=== PATIENT | male | born 1945 | race Caucasian/White ===

== ENCOUNTER 2020-09-14 19:02 | Inpatient (IN) | payer MEDICARE ==
[2020-09-14] MEDS ORDERED: Furosemide 100 MG/10 ML VIAL SLOW IVP SCH (20:00)
[2020-09-14 20:55] LABS: INR-International Normal Ratio 1.1; PTT 27.9 sec (22.0-33.0); Prothrombin Time 11.9 sec (9.5-12.1)
[2020-09-14 21:00] LABS: Troponin I 0.032 ng/mL (< 0.028)
[2020-09-14] MEDS: cefTRIAXone\\ROCEPHIN 2 GM in Sodium Chloride 0.9% 100 ML IVPB SCH (21:53)
[2020-09-14] MEDS: Nitroglycerin 2% Ointment 1 INCH/1 GM Packet TOP SCH (21:58)
[2020-09-14] MEDS: Lantus 1000 UNITS/10 ML VIAL SC SCH (22:01)
[2020-09-14] MEDS: Atorvastatin Calcium 40 MG TAB PO SCH (22:02)
[2020-09-14] MEDS: Carbidopa/Levodopa 25-100 mg Tablet PO SCH (22:02)
[2020-09-14] MEDS: Apixaban 5 MG TAB PO SCH (22:02)
[2020-09-14] MEDS: Azithromycin 500 MG in Sodium Chloride 0.9% 250 ML 250 ML IVPB SCH (22:38)
[2020-09-15] MEDS ORDERED: HumaLOG 300 UNITS/3 ML VIAL SC SCH (04:00)
[2020-09-15] MEDS ORDERED: Magnesium 2 GM/50 ML 2 GM in Premix Bag 1 BAG IVPB SCH (04:00)
[2020-09-15] MEDS: Nitroglycerin 2% Ointment 1 INCH/1 GM Packet TOP SCH ×2 (05:24→16:22)
[2020-09-15] MEDS ORDERED: Furosemide 100 MG/10 ML VIAL SLOW IVP SCH ×2 (06:00)
[2020-09-15 06:48] LABS: #Monocytes 0.3 10x3/uL (0.0-1.1); #Neutrophils 5.1 10x3/uL (1.5-8.4); %Basophils 0.2 % (0.0-2.0); %Lymphocytes 10.2 % (18.0-47.0); %Monocytes 4.3 % (0.0-10.0); Hemoglobin 10.1 g/dL (13.5-17.5); Mean Corpuscular HGB CONC 32.6 g/dL (32.0-36.0); Mean Corpuscular Hemoglobin 31.2 pg (27.0-33.0); Mean Corpuscular Volume 95.7 fl (81.2-95.1); Mean Platelet Volume 9.5 fl (7.4-10.4); Platelet Count 419 10x3/uL (150-450); RBC Distribution Width 13.6 % (11.5-14.5); Red Blood Cell (RBC) Count 3.24 10x6/uL (4.32-5.72); White Blood Cell (WBC) Count 6.1 10x3/uL (3.5-10.5)
[2020-09-15 07:01] LABS: Anion Gap 17 mmol/L (10-20); BUN (Urea Nitrogen) 26 mg/dL (8.4-25.7); Calc. Creatinine Clearance 51 mL/min (70-130); Calcium 9.3 mg/dL (7.8-10.44); Carbon Dioxide 28 mmol/L (23-31); Cardiac Risk 3.5 (Less than 4.5); Chloride 97 mmol/L (98-107); Cholesterol 116 mg/dl (< 200 Desired); Glucose 209 mg/dL (83-110); HDL Cholesterol 33 mg/dL (>60 Neg Risk); LDL Cholesterol, Calculated 69 mg/dL; Potassium 4.1 mmol/L (3.5-5.1); Sodium 138 mmol/L (136-145); Triglycerides 72 mg/dL (Less than 150)
[2020-09-15] MEDS: Carbidopa/Levodopa 25-100 mg Tablet PO SCH ×3 (07:55→20:54)
[2020-09-15] MEDS: Aspirin 81 mg Enteric Coated Tablet PO SCH (07:55)
[2020-09-15] MEDS: Carvedilol 3.125 MG TAB PO SCH ×2 (07:55→16:25)
[2020-09-15] MEDS: Apixaban 5 MG TAB PO SCH ×2 (07:55→20:53)
[2020-09-15] MEDS ORDERED: metFORMIN 500 MG TAB PO SCH (08:00)
[2020-09-15] MEDS: Mometasone/Formoterol 60 PUFF AER INH SCH ×2 (08:00→19:17)
[2020-09-15] MEDS: Lantus 1000 UNITS/10 ML VIAL SC SCH ×2 (08:27→20:58)
[2020-09-15] MEDS ORDERED: Lisinopril 5 MG TAB PO SCH ×2 (09:00→12:30)
[2020-09-15] MEDS: Amlodipine 5 MG TAB PO SCH (09:10)
[2020-09-15] MEDS ORDERED: Dextrose 50% Abboject 50 ML SYRINGE SLOW IVP PRN (11:50)
[2020-09-15] MEDS ORDERED: Dextrose 5% in Water 1,000 ML IV PRN (11:50)
[2020-09-15] MEDS: Furosemide 40 MG/4 ML VIAL SLOW IVP SCH (16:22)
[2020-09-15 17:50] LABS: Hemoglobin A1c 7.5 % (4.0-6.0)
[2020-09-15] MEDS: cefTRIAXone\\ROCEPHIN 2 GM in Sodium Chloride 0.9% 100 ML IVPB SCH (20:52)
[2020-09-15] MEDS: Atorvastatin Calcium 40 MG TAB PO SCH (20:54)
[2020-09-15] MEDS: Azithromycin 500 MG in Sodium Chloride 0.9% 250 ML 250 ML IVPB SCH (20:58)
[2020-09-16] MEDS: Nitroglycerin 2% Ointment 1 INCH/1 GM Packet TOP SCH ×2 (00:50→07:07)
[2020-09-16] MEDS: Furosemide 40 MG/4 ML VIAL SLOW IVP SCH ×3 (06:11→17:25)
[2020-09-16 07:57] LABS: Anion Gap 16 mmol/L (10-20); BUN (Urea Nitrogen) 30 mg/dL (8.4-25.7); Calc. Creatinine Clearance 53 mL/min (70-130); Calcium 8.6 mg/dL (7.8-10.44); Carbon Dioxide 28 mmol/L (23-31); Chloride 98 mmol/L (98-107); Glucose 108 mg/dL (83-110); Potassium 3.6 mmol/L (3.5-5.1); Sodium 138 mmol/L (136-145)
[2020-09-16 08:00] LABS: Troponin I 0.039 ng/mL (< 0.028)
[2020-09-16] MEDS: Mometasone/Formoterol 60 PUFF AER INH SCH ×2 (09:26→19:14)
[2020-09-16] MEDS: Lantus 1000 UNITS/10 ML VIAL SC SCH ×2 (10:07→20:43)
[2020-09-16] MEDS: Apixaban 5 MG TAB PO SCH (10:07)
[2020-09-16] MEDS: Aspirin 81 mg Enteric Coated Tablet PO SCH (10:08)
[2020-09-16] MEDS: Carvedilol 3.125 MG TAB PO SCH ×2 (10:08→17:05)
[2020-09-16] MEDS: Carbidopa/Levodopa 25-100 mg Tablet PO SCH ×3 (10:08→20:14)
[2020-09-16] MEDS ORDERED: predniSONE 20 MG TAB PO SCH (12:00)
[2020-09-16] MEDS: Amlodipine 5 MG TAB PO SCH (12:29)
[2020-09-16] MEDS: Lisinopril 5 MG TAB PO SCH (12:30)
[2020-09-16] MEDS: guaiFENesin/Codeine Phosphate 100 mg/10 mg 5 ml UD Cup PO PRN ×2 (13:20→20:15)
[2020-09-16] MEDS: Atorvastatin Calcium 40 MG TAB PO SCH (20:14)
[2020-09-16] MEDS: Azithromycin 500 MG in Sodium Chloride 0.9% 250 ML 250 ML IVPB SCH (20:18)
[2020-09-16] MEDS: cefTRIAXone\\ROCEPHIN 2 GM in Sodium Chloride 0.9% 100 ML IVPB SCH (20:19)
[2020-09-17 05:14] LABS: Anion Gap 12 mmol/L (10-20); BUN (Urea Nitrogen) 29 mg/dL (8.4-25.7); Calc. Creatinine Clearance 57 mL/min (70-130); Carbon Dioxide 32 mmol/L (23-31); Chloride 99 mmol/L (98-107); Potassium 3.8 mmol/L (3.5-5.1); Sodium 139 mmol/L (136-145)
[2020-09-17 05:15] LABS: Calcium 8.7 mg/dL (7.8-10.44); Glucose 82 mg/dL (83-110)
[2020-09-17] MEDS: Furosemide 40 MG/4 ML VIAL SLOW IVP SCH (06:47)
[2020-09-17] MEDS: Mometasone/Formoterol 60 PUFF AER INH SCH ×2 (08:16→19:30)
[2020-09-17] MEDS: Carvedilol 3.125 MG TAB PO SCH ×2 (09:33→17:06)
[2020-09-17] MEDS: Amlodipine 5 MG TAB PO SCH (09:33)
[2020-09-17] MEDS: Carbidopa/Levodopa 25-100 mg Tablet PO SCH ×3 (09:33→20:34)
[2020-09-17] MEDS: Lisinopril 5 MG TAB PO SCH (09:33)
[2020-09-17] MEDS: Aspirin 81 mg Enteric Coated Tablet PO SCH (09:33)
[2020-09-17] MEDS: Clopidogrel Bisulfate 75 MG TAB PO SCH (09:35)
[2020-09-17] MEDS: Lantus 1000 UNITS/10 ML VIAL SC SCH ×2 (10:16→20:49)
[2020-09-17] MEDS ORDERED: Polyethylene Glycol 3350 17 GM Packet PO PRN (15:46)
[2020-09-17] MEDS: Furosemide 40 MG TAB PO SCH (15:56)
[2020-09-17] MEDS ORDERED: Glycerin Adult Supp. (24 ct jar) RC SCH (16:00)
[2020-09-17] MEDS: cefTRIAXone\\ROCEPHIN 2 GM in Sodium Chloride 0.9% 100 ML IVPB SCH (19:44)
[2020-09-17] MEDS: Atorvastatin Calcium 40 MG TAB PO SCH (20:34)
[2020-09-17] MEDS: Insulin Regular 300 UNITS/3 ML VIAL SC PRN (20:47)
[2020-09-17] MEDS: Docusate 100 MG CAP PO SCH (20:49)
[2020-09-17] MEDS: Azithromycin 500 MG in Sodium Chloride 0.9% 250 ML 250 ML IVPB SCH (20:53)
[2020-09-17] MEDS: guaiFENesin/Codeine Phosphate 100 mg/10 mg 5 ml UD Cup PO PRN (22:04)
[2020-09-18 05:26] LABS: Anion Gap 16 mmol/L (10-20); BUN (Urea Nitrogen) 23 mg/dL (8.4-25.7); Calc. Creatinine Clearance 60 mL/min (70-130); Calcium 8.9 mg/dL (7.8-10.44); Carbon Dioxide 31 mmol/L (23-31); Chloride 100 mmol/L (98-107); Glucose 77 mg/dL (83-110); Potassium 4.1 mmol/L (3.5-5.1); Sodium 143 mmol/L (136-145)
[2020-09-18] MEDS: Mometasone/Formoterol 60 PUFF AER INH SCH ×2 (07:18→19:05)
[2020-09-18 07:19] VITALS: BMI 27.6
[2020-09-18] MEDS: Furosemide 40 MG TAB PO SCH ×2 (09:24→15:27)
[2020-09-18] MEDS: Amlodipine 5 MG TAB PO SCH (09:24)
[2020-09-18] MEDS: Aspirin 81 mg Enteric Coated Tablet PO SCH (09:24)
[2020-09-18] MEDS: Clopidogrel Bisulfate 75 MG TAB PO SCH (09:24)
[2020-09-18] MEDS: Carvedilol 3.125 MG TAB PO SCH ×2 (09:24→17:20)
[2020-09-18] MEDS: Docusate 100 MG CAP PO SCH ×2 (09:24→21:03)
[2020-09-18] MEDS: Carbidopa/Levodopa 25-100 mg Tablet PO SCH ×3 (09:25→20:59)
[2020-09-18] MEDS: Lisinopril 5 MG TAB PO SCH (09:25)
[2020-09-18] MEDS: Lantus 1000 UNITS/10 ML VIAL SC SCH ×2 (15:18→21:02)
[2020-09-18] MEDS: Insulin Regular 300 UNITS/3 ML VIAL SC PRN ×2 (17:15→21:00)
[2020-09-18] MEDS: cefTRIAXone\\ROCEPHIN 2 GM in Sodium Chloride 0.9% 100 ML IVPB SCH (20:59)
[2020-09-18] MEDS: Azithromycin 500 MG in Sodium Chloride 0.9% 250 ML 250 ML IVPB SCH (20:59)
[2020-09-18] MEDS: Atorvastatin Calcium 40 MG TAB PO SCH (20:59)
[2020-09-18] MEDS: guaiFENesin/Codeine Phosphate 100 mg/10 mg 5 ml UD Cup PO PRN (20:59)
[2020-09-19 05:06] LABS: Anion Gap 14 mmol/L (10-20); BUN (Urea Nitrogen) 22 mg/dL (8.4-25.7); Calc. Creatinine Clearance 58 mL/min (70-130); Calcium 8.8 mg/dL (7.8-10.44); Carbon Dioxide 31 mmol/L (23-31); Chloride 101 mmol/L (98-107); Glucose 60 mg/dL (83-110); Sodium 142 mmol/L (136-145)
[2020-09-19] MEDS: guaiFENesin/Codeine Phosphate 100 mg/10 mg 5 ml UD Cup PO PRN (05:48)
[2020-09-19] MEDS: Mometasone/Formoterol 60 PUFF AER INH SCH (07:01)
[2020-09-19] MEDS: Carvedilol 3.125 MG TAB PO SCH (08:40)
[2020-09-19] MEDS: Amlodipine 5 MG TAB PO SCH (08:40)
[2020-09-19] MEDS: Clopidogrel Bisulfate 75 MG TAB PO SCH (08:41)
[2020-09-19] MEDS: Carbidopa/Levodopa 25-100 mg Tablet PO SCH ×2 (08:41→14:07)
[2020-09-19] MEDS: Aspirin 81 mg Enteric Coated Tablet PO SCH (08:41)
[2020-09-19] MEDS: Furosemide 40 MG TAB PO SCH ×2 (08:42→14:07)
[2020-09-19] MEDS: Lisinopril 5 MG TAB PO SCH (08:42)
[2020-09-19] MEDS: Docusate 100 MG CAP PO SCH (08:42)
[2020-09-19] MEDS: Lantus 1000 UNITS/10 ML VIAL SC SCH (08:58)
[2020-09-19 12:32] VITALS: BP 101/60; TEMP 97.8
== END 2020-09-19 15:12 | disposition home or self-care (01) | DRG 291 ==
LOC: CSHTELE 19:02 → OBSVTOIN 19:51
PROVIDERS: ADMIT Family Medicine; ATTEND Family Medicine
DX: I13.0 Hypertensive heart and chronic kidney disease with heart failure and stage 1 through stage 4 chronic kidney disease, or unspecified chronic kidney disease (principal); J96.01 Acute respiratory failure with hypoxia; I50.33 Acute on chronic diastolic (congestive) heart failure; J18.9 Pneumonia, unspecified organism; J44.1 Chronic obstructive pulmonary disease with (acute) exacerbation; I48.91 Unspecified atrial fibrillation; E11.42 Type 2 diabetes mellitus with diabetic polyneuropathy; Z79.4 Long term (current) use of insulin; I25.10 Atherosclerotic heart disease of native coronary artery without angina pectoris; I10 Essential (primary) hypertension; I73.9 Peripheral vascular disease, unspecified; Z87.891 Personal history of nicotine dependence; G20 Parkinson's disease; G47.33 Obstructive sleep apnea (adult) (pediatric); Z95.5 Presence of coronary angioplasty implant and graft; E11.22 Type 2 diabetes mellitus with diabetic chronic kidney disease
CPT/HCPCS: 36415; 36416; 80048; 80061; 82607; 82746; 83036; 83735; 83880; 84443; 84484; 85025; 85610; 85730; 93005; 93010; 93306; 94640; 94760; J0456; J0696; J1815; J1940; J3475; J3490; J7050; J7512; J7620

== ENCOUNTER 2021-05-17 10:14 | Inpatient (IN) | payer MEDICARE ==
[2021-05-17] MEDS ORDERED: Cefepime 2 GM VIAL ONE (10:40)
[2021-05-17 10:44] LABS: #Monocytes 0.9 10x3/uL (0.0-1.1); #Neutrophils 8.3 10x3/uL (1.5-8.4); %Basophils 0.2 % (0.0-2.0); %Eosinophils 0.1 % (0.0-6.0); %Lymphocytes 6.5 % (18.0-47.0); %Monocytes 8.6 % (0.0-10.0); %Neutrophils 84.1 % (40.0-75.0); Mean Corpuscular Hemoglobin 30.5 pg (27.0-33.0); Mean Corpuscular Volume 95.4 fl (81.2-95.1); Mean Platelet Volume 9.3 fl (7.4-10.4); Platelet Count 330 10x3/uL (150-450); RBC Distribution Width 13.3 % (11.5-14.5); Red Blood Cell (RBC) Count 2.62 10x6/uL (4.32-5.72); White Blood Cell (WBC) Count 9.8 10x3/uL (3.5-10.5)
[2021-05-17 10:55] LABS: ALT (SGPT) 8 U/L (8-55); AST (SGOT) 7 U/L (5-34); Albumin 3.5 g/dL (3.4-4.8); Alkaline Phosphatase 92 U/L (40-110); Anion Gap 15 mmol/L (10-20); BUN (Urea Nitrogen) 38 mg/dL (8.4-25.7); Bilirubin, Total 0.8 mg/dL (0.2-1.2); Calc. Creatinine Clearance 0 mL/min (70-130); Calcium 8.8 mg/dL (7.8-10.44); Carbon Dioxide 23 mmol/L (23-31); Chloride 99 mmol/L (98-107); Globulin 3.9 g/dL (2.4-3.5); Glucose 159 mg/dL (83-110); Potassium 5.3 mmol/L (3.5-5.1); Protein, Total 7.4 g/dL (5.8-8.1); Sodium 132 mmol/L (136-145)
[2021-05-17] MEDS ORDERED: Guaifenesin DM 100-10/5 ML UDCUP PO PRN (12:03)
[2021-05-17] MEDS ORDERED: Dextrose 50% Abboject 50 ML SYRINGE SLOW IVP PRN (12:04)
[2021-05-17] MEDS ORDERED: HumaLOG 300 UNITS/3 ML VIAL SC PRN (12:04)
[2021-05-17] MEDS ORDERED: Dextrose 5% in Water 1,000 ML IV PRN (12:04)
[2021-05-17] MEDS ORDERED: Senokot S 8.6-50 MG TAB PO PRN (12:05)
[2021-05-17] MEDS ORDERED: Acetaminophen 325 MG TAB PO PRN (12:05)
[2021-05-17] MEDS ORDERED: Ondansetron PF 4 MG/2 ML Vial IVP PRN (12:05)
[2021-05-17] MEDS ORDERED: Ondansetron ODT 4 MG TAB PO PRN (12:05)
[2021-05-17] MEDS ORDERED: Sodium Chloride 0.9% 1,000 ML IV SCH (12:15)
[2021-05-17] MEDS ORDERED: Sodium Chloride 0.9% 500 ML IV SCH (12:15)
[2021-05-17 13:50] VITALS: BMI 26.2
[2021-05-17 14:34] LABS: Lactic Acid 1.6 mmol/L (0.5-2.2)
[2021-05-17] MEDS: HumaLOG 300 UNITS/3 ML VIAL SC PRN ×2 (16:58→21:13)
[2021-05-17] MEDS: Cefepime 1 GM in Sodium Chloride 0.9% 100 ML IVPB SCH (20:59)
[2021-05-17] MEDS: Atorvastatin Calcium 40 MG TAB PO SCH (20:59)
[2021-05-17] MEDS: clonazePAM 0.5 MG TAB PO SCH (20:59)
[2021-05-17] MEDS: Famotidine 20 MG TAB PO SCH (20:59)
[2021-05-17] MEDS ORDERED: Amlodipine 5 MG TAB PO SCH (21:00)
[2021-05-17] MEDS ORDERED: Vancomycin 1 GM in Premix Bag 1 BAG IVPB PRN (21:00)
[2021-05-17] MEDS: Amlodipine 5 MG TAB PO SCH (21:09)
[2021-05-18] MEDS ORDERED: Furosemide 40 MG/4 ML VIAL SLOW IVP SCH ×3 (02:15→15:15)
[2021-05-18] MEDS ORDERED: methylPREDNISolone Sod Succ/PF 125 MG/2 ML VIAL IVP SCH ×2 (02:15→09:00)
[2021-05-18 05:44] LABS: Anion Gap 18 mmol/L (10-20); BUN (Urea Nitrogen) 53 mg/dL (8.4-25.7); Calc. Creatinine Clearance 33 mL/min (70-130); Calcium 8.6 mg/dL (7.8-10.44); Carbon Dioxide 18 mmol/L (23-31); Chloride 100 mmol/L (98-107); Glucose 430 mg/dL (83-110); Iron 47 ug/dL (65-175); Iron Binding Capacity, Total 259 mcg/dL (261-462); Potassium 4.8 mmol/L (3.5-5.1); Sodium 131 mmol/L (136-145)
[2021-05-18 05:51] LABS: #Monocytes 0.4 10x3/uL (0.0-1.1); #Neutrophils 10.4 10x3/uL (1.5-8.4); %Basophils 0.1 % (0.0-2.0); %Lymphocytes 2.9 % (18.0-47.0); %Monocytes 3.2 % (0.0-10.0); %Neutrophils 93.3 % (40.0-75.0); Hemoglobin 7.9 g/dL (13.5-17.5); Mean Corpuscular HGB CONC 31.6 g/dL (32.0-36.0); Mean Corpuscular Hemoglobin 30.3 pg (27.0-33.0); Mean Corpuscular Volume 95.8 fl (81.2-95.1); Mean Platelet Volume 9.8 fl (7.4-10.4); Platelet Count 389 10x3/uL (150-450); RBC Distribution Width 13.5 % (11.5-14.5); Red Blood Cell (RBC) Count 2.61 10x6/uL (4.32-5.72); White Blood Cell (WBC) Count 11.2 10x3/uL (3.5-10.5)
[2021-05-18 06:00] LABS: Ferritin 255.36 ng/mL (22-322)
[2021-05-18] MEDS: HumaLOG 300 UNITS/3 ML VIAL SC PRN ×2 (06:28→11:32)
[2021-05-18] MEDS ORDERED: Carvedilol 3.125 MG TAB PO SCH (08:00)
[2021-05-18] MEDS ORDERED: Furosemide 40 MG/4 ML VIAL ONE (08:08)
[2021-05-18] MEDS ORDERED: Albuterol Sulfate 2.5 mg/3 ml Neb ONE (08:13)
[2021-05-18 08:28] LABS: Actual Bicarbonate (HCO3a) 16.3 mEq/L (22-28); Base Excess (BEa) -9.8 mEq/L (-2.0 to +3.0); CO2 Tension 36.7 mmHg (35.0-45.0); Calcium, Ionized (arterial) 1.12 mmol/L (1.12-1.30); Carboxyhemoglobin (COHb) 0.4 gm% (0.0-3.0); Hemoglobin (Hb) 8.9 g/dL (14.0-18.0); O2 Tension (PaO2), arterial 110.3 mmHg (> 70.0); Potassium - ABG Lab 4.9 mmol/L (3.70-5.30); Puncture Site LRA; pH, Arterial 7.27 (7.35-7.45)
[2021-05-18 08:30] LABS: ALV-art Gradient 556.825 mmHg (0-20)
[2021-05-18] MEDS ORDERED: Lantus 1000 UNITS/10 ML VIAL SC SCH ×2 (09:00→21:00)
[2021-05-18] MEDS ORDERED: Magnesium 2 GM/50 ML 2 GM in Premix Bag 1 BAG IVPB SCH (09:00)
[2021-05-18] MEDS: Cefepime 1 GM in Sodium Chloride 0.9% 100 ML IVPB SCH ×2 (09:42→22:28)
[2021-05-18] MEDS: Enoxaparin Sodium 30 MG/0.3 ML SYRINGE SC SCH (11:47)
[2021-05-18] MEDS: Carvedilol 3.125 MG TAB PO SCH ×2 (11:48→17:19)
[2021-05-18] MEDS: Finasteride 5 MG TAB PO SCH (11:49)
[2021-05-18] MEDS: Clopidogrel Bisulfate 75 MG TAB PO SCH (11:49)
[2021-05-18] MEDS: Loratadine 10 MG TAB PO SCH (11:49)
[2021-05-18 12:09] LABS: Vancomycin, Random 6.2 ug/mL (See Comment)
[2021-05-18 12:35] LABS: Creatinine, Urine 58.11 mg/dL (63-166)
[2021-05-18] MEDS ORDERED: Vancomycin HCl 1 GM in Sodium Chloride 0.9% 250 ML 250 ML IVPB SCH (13:00)
[2021-05-18] MEDS: Dexmedetomidine In 0.9 % NaCl 100 ML IVPB SCH ×2 (13:15→17:41)
[2021-05-18] MEDS: methylPREDNISolone Sod Succ 40 MG VIAL IVP SCH ×2 (13:53→20:24)
[2021-05-18] MEDS: HumaLOG 300 UNITS/3 ML VIAL SC SCH (17:20)
[2021-05-18] MEDS: Mometasone/Formoterol 60 PUFF AER INH SCH (19:25)
[2021-05-18] MEDS: Lantus 1000 UNITS/10 ML VIAL SC SCH (20:39)
[2021-05-18] MEDS: Atorvastatin Calcium 40 MG TAB PO SCH (22:31)
[2021-05-18] MEDS: clonazePAM 0.5 MG TAB PO SCH (22:31)
[2021-05-18] MEDS: Amlodipine 5 MG TAB PO SCH (22:31)
[2021-05-18] MEDS: Famotidine 20 MG TAB PO SCH (22:31)
[2021-05-18] MEDS: Prazosin HCl 1 MG CAP PO SCH (22:32)
[2021-05-19] MEDS: Dexmedetomidine In 0.9 % NaCl 100 ML IVPB SCH ×2 (01:52→14:46)
[2021-05-19] MEDS: methylPREDNISolone Sod Succ 40 MG VIAL IVP SCH ×4 (01:57→20:12)
[2021-05-19 02:14] LABS: #Monocytes 0.6 10x3/uL (0.0-1.1); #Neutrophils 11.4 10x3/uL (1.5-8.4); %Basophils 0.1 % (0.0-2.0); %Lymphocytes 2.7 % (18.0-47.0); %Monocytes 5.2 % (0.0-10.0); %Neutrophils 91.6 % (40.0-75.0); Hemoglobin 8.3 g/dL (13.5-17.5); Mean Corpuscular HGB CONC 32.3 g/dL (32.0-36.0); Mean Corpuscular Hemoglobin 31.1 pg (27.0-33.0); Mean Corpuscular Volume 96.3 fl (81.2-95.1); Mean Platelet Volume 9.9 fl (7.4-10.4); Platelet Count 322 10x3/uL (150-450); RBC Distribution Width 13.5 % (11.5-14.5); Red Blood Cell (RBC) Count 2.67 10x6/uL (4.32-5.72); White Blood Cell (WBC) Count 12.4 10x3/uL (3.5-10.5)
[2021-05-19 03:09] LABS: Anion Gap 15 mmol/L (10-20); BUN (Urea Nitrogen) 62 mg/dL (8.4-25.7); Calc. Creatinine Clearance 32 mL/min (70-130); Calcium 8.4 mg/dL (7.8-10.44); Carbon Dioxide 17 mmol/L (23-31); Chloride 106 mmol/L (98-107); Glucose 343 mg/dL (83-110); Potassium 4.3 mmol/L (3.5-5.1); Sodium 134 mmol/L (136-145)
[2021-05-19] MEDS: HumaLOG 300 UNITS/3 ML VIAL SC PRN (06:38)
[2021-05-19] MEDS: Mometasone/Formoterol 60 PUFF AER INH SCH ×2 (06:58→19:15)
[2021-05-19 07:59] LABS: Actual Bicarbonate (HCO3a) 21.2 mEq/L (22-28); Base Excess (BEa) -3.5 mEq/L (-2.0 to +3.0); CO2 Tension 36.5 mmHg (35.0-45.0); Calcium, Ionized (arterial) 1.15 mmol/L (1.12-1.30); Carboxyhemoglobin (COHb) 0.3 gm% (0.0-3.0); Hemoglobin (Hb) 8.9 g/dL (14.0-18.0); O2 Tension (PaO2), arterial 63.3 mmHg (> 70.0); Potassium - ABG Lab 4.3 mmol/L (3.70-5.30); Puncture Site RRA; pH, Arterial 7.38 (7.35-7.45)
[2021-05-19 08:03] LABS: ALV-art Gradient 604.075 mmHg (0-20)
[2021-05-19] MEDS: Clopidogrel Bisulfate 75 MG TAB PO SCH (08:37)
[2021-05-19] MEDS: Carvedilol 3.125 MG TAB PO SCH ×2 (08:37→16:20)
[2021-05-19] MEDS: Loratadine 10 MG TAB PO SCH (08:38)
[2021-05-19] MEDS: Finasteride 5 MG TAB PO SCH (08:38)
[2021-05-19] MEDS: Cefepime 1 GM in Sodium Chloride 0.9% 100 ML IVPB SCH ×2 (08:42→20:14)
[2021-05-19] MEDS: Enoxaparin Sodium 30 MG/0.3 ML SYRINGE SC SCH (08:42)
[2021-05-19 08:47] LABS: Hemoglobin A1c 8.2 % (4.0-6.0)
[2021-05-19] MEDS: HumaLOG 300 UNITS/3 ML VIAL SC SCH ×3 (08:48→16:58)
[2021-05-19] MEDS ORDERED: Furosemide 40 MG/4 ML VIAL SLOW IVP SCH (09:00)
[2021-05-19] MEDS ORDERED: Lantus 1000 UNITS/10 ML VIAL SC SCH (09:00)
[2021-05-19 13:16] LABS: Vancomycin, Random 11.3 ug/mL (See Comment)
[2021-05-19] MEDS ORDERED: Vancomycin HCl 1 GM in Sodium Chloride 0.9% 250 ML 250 ML IVPB SCH (14:00)
[2021-05-19] MEDS: Atorvastatin Calcium 40 MG TAB PO SCH (20:14)
[2021-05-19] MEDS: clonazePAM 0.5 MG TAB PO SCH (20:14)
[2021-05-19] MEDS: Amlodipine 5 MG TAB PO SCH (20:14)
[2021-05-19] MEDS: Famotidine 20 MG TAB PO SCH (20:15)
[2021-05-19] MEDS: Prazosin HCl 1 MG CAP PO SCH (20:17)
[2021-05-19] MEDS: Lantus 1000 UNITS/10 ML VIAL SC SCH (20:17)
[2021-05-19] MEDS ORDERED: Ziprasidone 20 MG VIAL IM SCH (21:00)
[2021-05-19] MEDS ORDERED: Sterile Water 10 ML ONE (21:30)
[2021-05-19 22:54] VITALS: TEMP 97.6
[2021-05-20] MEDS: Dexmedetomidine In 0.9 % NaCl 100 ML IVPB SCH (01:21)
[2021-05-20] MEDS: methylPREDNISolone Sod Succ 40 MG VIAL IVP SCH (02:34)
[2021-05-20 03:58] LABS: Hemoglobin 8.5 g/dL (13.5-17.5); MDiff Complete? YES; Mean Corpuscular HGB CONC 32.3 g/dL (32.0-36.0); Mean Corpuscular Hemoglobin 30.4 pg (27.0-33.0); Mean Corpuscular Volume 93.9 fl (81.2-95.1); Mean Platelet Volume 10.2 fl (7.4-10.4); Platelet Count 329 10x3/uL (150-450); RBC Distribution Width 13.9 % (11.5-14.5); White Blood Cell (WBC) Count 20.4 10x3/uL (3.5-10.5)
[2021-05-20 04:10] LABS: Anion Gap 21 mmol/L (10-20); BUN (Urea Nitrogen) 61 mg/dL (8.4-25.7); Calc. Creatinine Clearance 35 mL/min (70-130); Calcium 8.6 mg/dL (7.8-10.44); Carbon Dioxide 13 mmol/L (23-31); Chloride 112 mmol/L (98-107); Glucose 234 mg/dL (83-110); Potassium 4.6 mmol/L (3.5-5.1); Sodium 141 mmol/L (136-145)
[2021-05-20 04:25] LABS: Band 7 % (5-11); Lymphocytes 1 % (21-51); Monocytes 4 % (0-10); Neutrophil 88 % (42-75)
[2021-05-20 04:27] LABS: Anisocytosis SLIGHT = 6-15 cells (100X) (0-5/hpf); Burr Cells SLIGHT = 2-5 cells (100X) (0-1/hpf); Poikilocytosis SLIGHT = 6-15 cells (100X) (0-5/hpf)
[2021-05-20 04:30] LABS: Microcytosis SLIGHT = 6-15 cells (100X) (0-5/hpf)
[2021-05-20 04:32] LABS: Platelet Clumps MODERATE; Platelet Morphology Comment Appears Adequate; Toxic Granulation MODERATE
[2021-05-20 04:33] LABS: Crenated RBC MODERATE= 6-15 cells (100X) (None Seen)
[2021-05-20 04:39] VITALS: BP 112/69
[2021-05-20] MEDS ORDERED: Furosemide 40 MG/4 ML VIAL ONE (05:18)
[2021-05-20] MEDS ORDERED: Morphine 4 MG/ML VIAL ONE (05:20)
[2021-05-20] MEDS: HumaLOG 300 UNITS/3 ML VIAL SC PRN (05:41)
[2021-05-20] MEDS ORDERED: Furosemide 20 MG/2 ML VIAL SLOW IVP SCH (06:00)
[2021-05-20] MEDS ORDERED: Morphine 4 MG/ML VIAL SLOW IVP SCH (06:00)
[2021-05-20] MEDS ORDERED: Morphine 4 MG/ML VIAL SLOW IVP PRN ×2 (06:31→07:59)
[2021-05-20] MEDS ORDERED: Lorazepam 2 MG/ML VIAL SLOW IVP PRN (07:50)
[2021-05-20] MEDS ORDERED: Scopolamine 1.5 mg/72 hour Patch TD SCH (08:00)
[2021-05-20] MEDS: Mometasone/Formoterol 60 PUFF AER INH SCH (08:03)
== END 2021-05-20 09:16 | disposition expired | DRG 871 ==
LOC: CSHERS 10:14 → CSHTELE 13:45 → CSHIMCU 05-18 08:22
PROVIDERS: ADMIT Internal Medicine; ATTEND Nurse Practitioner Family
PROC: 5A09457 Assistance with Respiratory Ventilation, 24-96 Consecutive Hours, Continuous Positive Airway Pressure (ICD-10-PCS; principal; 2021-05-18)
DX: A41.9 Sepsis, unspecified organism (principal); J18.9 Pneumonia, unspecified organism; J96.21 Acute and chronic respiratory failure with hypoxia; I50.33 Acute on chronic diastolic (congestive) heart failure; J44.1 Chronic obstructive pulmonary disease with (acute) exacerbation; N17.9 Acute kidney failure, unspecified; I13.0 Hypertensive heart and chronic kidney disease with heart failure and stage 1 through stage 4 chronic kidney disease, or unspecified chronic kidney disease; L03.116 Cellulitis of left lower limb; E87.1 Hypo-osmolality and hyponatremia; E87.2 Acidosis; J44.0 Chronic obstructive pulmonary disease with (acute) lower respiratory infection; Z51.5 Encounter for palliative care; Z66 Do not resuscitate; G20 Parkinson's disease; F02.80 Dementia in other diseases classified elsewhere, unspecified severity, without behavioral disturbance, psychotic disturbance, mood disturbance, and anxiety; E11.51 Type 2 diabetes mellitus with diabetic peripheral angiopathy without gangrene; I25.10 Atherosclerotic heart disease of native coronary artery without angina pectoris; E78.5 Hyperlipidemia, unspecified; E11.22 Type 2 diabetes mellitus with diabetic chronic kidney disease; E11.42 Type 2 diabetes mellitus with diabetic polyneuropathy; N18.31 Chronic kidney disease, stage 3a; G47.33 Obstructive sleep apnea (adult) (pediatric); I70.292 Other atherosclerosis of native arteries of extremities, left leg; E86.0 Dehydration; M72.9 Fibroblastic disorder, unspecified; E87.5 Hyperkalemia; D63.1 Anemia in chronic kidney disease; Z95.5 Presence of coronary angioplasty implant and graft; Z79.4 Long term (current) use of insulin; Z99.81 Dependence on supplemental oxygen; Z79.899 Other long term (current) drug therapy; Z79.02 Long term (current) use of antithrombotics/antiplatelets; Z79.84 Long term (current) use of oral hypoglycemic drugs; Z87.891 Personal history of nicotine dependence; Z79.82 Long term (current) use of aspirin; Z78.1 Physical restraint status
CPT/HCPCS: 36415; 36416; 36600; 71045; 76770; 80048; 80053; 80202; 82274; 82550; 82570; 82607; 82728; 82746; 82805; 83036; 83540; 83550; 83605; 83880; 84156; 85025; 85046; 87040; 93005; 93923; 94640; 94660; 94664; 94760; J0692; J1650; J1815; J1940; J2270; J2920; J2930; J3370; J3475; J3486; J3490; J7050; J7611; J7620